=== PATIENT | female | born 1940 | race Caucasian/White ===

== ENCOUNTER 2017-11-07 12:41 | Emergency (ER) | payer MEDICARE, BC ==
[~2017-11-07] VITALS: Ht 154.9 cm; Wt 50.0 kg
[~2017-11-07 12:41] MED LIST: GUAI120015 PO
[2017-11-07] MEDS ORDERED: normal saline 1000ML IV soln IVB ONE (13:15)
[2017-11-07 13:35] LABS: BASOPHILS # (AUTO) 0.2 X10'3 (0-0.2); BASOPHILS % (AUTO) 1.3 % (0-1); EOSINOPHILS # (AUTO) 0.4 X10'3 (0-0.9); EOSINOPHILS % (AUTO) 2.7 % (0-6); HEMATOCRIT 34.9 % (35.0-45.0); HEMOGLOBIN 11.8 g/dl (12.0-16.0); LYMPHOCYTES # (AUTO) 1.2 X10'3 (1.1-4.8); LYMPHOCYTES % (AUTO) 9.4 % (21-51); MEAN CORPUSCULAR HEMOGLOBIN 35.9 PG (27.0-31.0); MEAN CORPUSCULAR HGB CONC 33.9 % (33.0-36.5); MEAN CORPUSCULAR VOLUME 105.8 FL (78-98); MEAN PLATELET VOLUME 7.7 FL (7.4-10.4); MONOCYTES # (AUTO) 0.8 X10'3 (0-0.9); MONOCYTES % (AUTO) 6.3 % (2-12); NEUTROPHILS # (AUTO) 10.3 X10'3 (1.8-7.7); NEUTROPHILS % (AUTO) 80.3 % (42-75); PLATELET COUNT 311 X10'3 (140-440); RED CELL DISTRIBUTION WIDTH 12.7 % (11.5-14.5); WHITE BLOOD COUNT 12.8 X10'3 (4.5-11.0)
[2017-11-07 13:45] LABS: INR 0.9 INR; PARTIAL THROMBOPLASTIN TIME 23 SECONDS (22-32); PROTHROMBIN TIME 9.8 SECONDS (9.0-12.0)
[2017-11-07 13:49] LABS: ALANINE AMINOTRANSFERASE 23 U/L (12-78); ALBUMIN 3.7 G/DL (3.4-5.0); ALKALINE PHOSPHATASE 61 IU/L (46-116); ANION GAP 11 (8-16); ASPARTATE AMINO TRANSFERASE 26 U/L (10-37); BILIRUBIN,TOTAL 0.3 MG/DL (0.1-1.0); BLOOD UREA NITROGEN 21 MG/DL (7-18); BUN/CREATININE RATIO 13.5 (6.6-38.0); CALCIUM 9.9 MG/DL (8.5-10.1); CHLORIDE 95 MMOL/L (99-107); CREATININE 1.56 MG/DL (0.40-0.90); GLUCOSE 82 MG/DL (70-104); POTASSIUM 3.8 MMOL/L (3.5-5.1); SODIUM 130 MMOL/L (135-145); TOTAL CARBON DIOXIDE 23.7 MMOL/L (24-32); TOTAL PROTEIN 7.4 G/DL (6.4-8.2); eGFR 32 ML/MIN
[2017-11-07 13:58] LABS: ETHANOL 0.038 GM/DL (0.0-0.010)
[2017-11-07 14:59] LABS: CLARITY,URINE SLIGHTLY CLOUDY (Clear); COLOR,URINE STRAW (Yellow); GLUCOSE, URINE NEGATIVE (Neg); KETONES,URINE TRACE mg/dl (Neg); LEUKOCYTE ESTERASE ,URINE TRACE (Neg); NITRITES, URINE POSITIVE (Neg); OCCULT BLOOD,URINE TRACE-INTACT (Neg); PROTEIN,URINE NEGATIVE (Neg); UROBILINOGEN,URINE 0.2 E.U/dL (0.2-1.0)
[2017-11-07 15:06] LABS: UA COLLECTION TYPE STRAIGHT CATH
[2017-11-07 15:11] LABS: HYALINE CASTS 0-3 /LPF (NEGATIVE); MUCUS STRANDS FEW /LPF (Neg); SQUAMOUS EPITHELIAL CELL,UR FEW /LPF (FEW)
[2017-11-07 15:13] LABS: BACTERIA,URINE 3+ /HPF (Neg); RBC,URINE 0-2 /HPF (0-2); WBC CLUMPS,URINE MODERATE /HPF (NEGATIVE)
[2017-11-07] MEDS ORDERED: CefTRIAXone/D5W-Rocephin 1gm 50 ML IV ONE (15:20)
[2017-11-07] MEDS ORDERED: SULF1TAB49 PO (15:34)
[2017-11-07 16:21] VITALS: BP 148/76
== END 2017-11-07 16:23 | disposition home or self-care (01) ==
LOC: ER 12:42
DX: S02.2XXA Fracture of nasal bones, initial encounter for closed fracture (principal); R55 Syncope and collapse; N39.0 Urinary tract infection, site not specified; I10 Essential (primary) hypertension; I48.91 Unspecified atrial fibrillation; E78.00 Pure hypercholesterolemia, unspecified; Z90.49 Acquired absence of other specified parts of digestive tract; Z90.710 Acquired absence of both cervix and uterus; Z88.5 Allergy status to narcotic agent; Z79.899 Other long term (current) drug therapy; W18.39XA Other fall on same level, initial encounter; Y93.89 Activity, other specified; Y92.89 Other specified places as the place of occurrence of the external cause; Y99.8 Other external cause status
CPT/HCPCS: 36415; 70160; 70450; 71045; 80053; 80320; 81001; 84443; 84484; 85025; 85610; 85730; 87077; 87088; 87186; 93005; 96361; 96365; 99285; A4353; J0696

== ENCOUNTER 2017-12-16 14:24 | Inpatient (IN) | payer MEDICARE, BC ==
[~2017-12-16] VITALS: Ht 154.9 cm; Wt 52.7 kg
[2017-12-16] MEDS ORDERED: normal saline 1000ML IV soln IVB ONE (14:30)
[2017-12-16] MEDS ORDERED: morphine 4 MG/ML inj SYRINge IV ONE ×2 (14:30→17:55)
[2017-12-16] MEDS ORDERED: morphine 4 MG/ML inj SYRINge IV PRN ×3 (14:30→19:00)
[2017-12-16 15:00] LABS: BASOPHILS % (AUTO) 0.2 % (0-1); EOSINOPHILS # (AUTO) 0.2 X10'3 (0-0.9); EOSINOPHILS % (AUTO) 1.9 % (0-6); HEMATOCRIT 32.1 % (35.0-45.0); HEMOGLOBIN 10.8 g/dl (12.0-16.0); LYMPHOCYTES # (AUTO) 0.6 X10'3 (1.1-4.8); LYMPHOCYTES % (AUTO) 5.7 % (21-51); MEAN CORPUSCULAR HEMOGLOBIN 35.5 PG (27.0-31.0); MEAN CORPUSCULAR HGB CONC 33.8 % (33.0-36.5); MEAN CORPUSCULAR VOLUME 105.3 FL (78-98); MEAN PLATELET VOLUME 7.5 FL (7.4-10.4); MONOCYTES # (AUTO) 0.6 X10'3 (0-0.9); MONOCYTES % (AUTO) 5.9 % (2-12); NEUTROPHILS # (AUTO) 8.8 X10'3 (1.8-7.7); NEUTROPHILS % (AUTO) 86.3 % (42-75); PLATELET COUNT 238 X10'3 (140-440); RED BLOOD COUNT 3.05 X10'6 (4.20-5.60); RED CELL DISTRIBUTION WIDTH 14.2 % (11.5-14.5); WHITE BLOOD COUNT 10.1 X10'3 (4.5-11.0)
[2017-12-16] MEDS ORDERED: OMEP40CA37 PO (15:09)
[2017-12-16] MEDS ORDERED: DIAZ5TAB4 (15:09)
[2017-12-16] MEDS ORDERED: VENL-190 PO (15:09)
[2017-12-16] MEDS ORDERED: LISI-600 PO (15:09)
[2017-12-16] MEDS ORDERED: ATOR20TA PO (15:09)
[2017-12-16] MEDS ORDERED: GABA-530 PO (15:09)
[2017-12-16 15:11] LABS: INR 0.9 INR; PARTIAL THROMBOPLASTIN TIME 23 SECONDS (22-32); PROTHROMBIN TIME 9.6 SECONDS (9.0-12.0)
[2017-12-16 15:12] LABS: CLARITY,URINE CLEAR (Clear); COLOR,URINE YELLOW (Yellow); GLUCOSE, URINE NEGATIVE (Neg); KETONES,URINE 15 mg/dl (Neg); LEUKOCYTE ESTERASE ,URINE NEGATIVE (Neg); NITRITES, URINE NEGATIVE (Neg); OCCULT BLOOD,URINE NEGATIVE (Neg); PH,URINE 6.5 (4.8-8.0); PROTEIN,URINE NEGATIVE (Neg); UA COLLECTION TYPE FOLEY CATH
[2017-12-16 15:17] LABS: ALANINE AMINOTRANSFERASE 29 U/L (12-78); ALBUMIN 3.9 G/DL (3.4-5.0); ALBUMIN/GLOBULIN RATIO 1.2 (1.1-1.5); ALKALINE PHOSPHATASE 55 IU/L (46-116); ANION GAP 12 (8-16); ASPARTATE AMINO TRANSFERASE 23 U/L (10-37); BILIRUBIN,TOTAL 0.7 MG/DL (0.1-1.0); BLOOD UREA NITROGEN 11 MG/DL (7-18); BUN/CREATININE RATIO 11.2 (6.6-38.0); CALCIUM 9.4 MG/DL (8.5-10.1); CHLORIDE 94 MMOL/L (99-107); CREATININE 0.98 MG/DL (0.40-0.90); GLUCOSE 99 MG/DL (70-104); MAGNESIUM 1.2 MG/DL (1.5-2.4); POTASSIUM 4.5 MMOL/L (3.5-5.1); SODIUM 129 MMOL/L (135-145); TOTAL CARBON DIOXIDE 23.3 MMOL/L (24-32); TOTAL PROTEIN 7.1 G/DL (6.4-8.2); eGFR 55 ML/MIN
[2017-12-16 15:37] LABS: PLATELET ESTIMATE NORMAL; TOTAL CELLS COUNTED 100
[2017-12-16] MEDS ORDERED: LIDOcaine 1% 30ml preserv. free vial IJ ONE (15:50)
[2017-12-16] MEDS ORDERED: BUPIVAcaine/PF 2.5 mg/ml (0.25%) 30ml vial IJ ONE (15:50)
[2017-12-16 16:01] LABS: ETHANOL < 0.010 GM/DL (0.0-0.010)
[2017-12-16] MEDS ORDERED: BUPIVAcaine 2.5mg/ml inj 50ml vial (contains preservative) IJ ONE (16:10)
[2017-12-16] MEDS ORDERED: magnesium hydroxide 30ml (MOM) UD suspension PO PRN (19:00)
[2017-12-16] MEDS ORDERED: haloperidol lactate 5mg/ml inj IM PRN (19:00)
[2017-12-16] MEDS ORDERED: magnesium 1gm/100ml D5W IVPB 100 ML IV PRN (19:00)
[2017-12-16] MEDS ORDERED: LORazepam 2 mg/ml vial IV PRN (19:00)
[2017-12-16] MEDS ORDERED: ondansetron/PF 4mg/2ml inj IV PRN (19:00)
[2017-12-16] MEDS ORDERED: potassium Cl 40MEQ/NS 500ml 500 ML IV PRN ×2 (19:00)
[2017-12-16] MEDS ORDERED: LORazepam 1 MG tablet PO PRN (19:00)
[2017-12-16] MEDS ORDERED: potassium Cl 20 mEq SR tablet PO PRN ×2 (19:00)
[2017-12-16] MEDS ORDERED: mag hydrox/Alum hydrox/simeth 30ml oral suspension PO PRN (19:00)
[2017-12-16] MEDS ORDERED: acetaminophen 325mg tablet PO PRN ×2 (19:00)
[2017-12-16] MEDS ORDERED: haloperidol 5mg tablet PO PRN (19:00)
[2017-12-16] MEDS ORDERED: magnesium 4gm in 100ml NS 100 ML IV PRN (19:00)
[2017-12-16] MEDS ORDERED: dextrose 50%-water 50ml dispensing syringe IV PRN (19:00)
[2017-12-16] MEDS: normal saline 1000ml 1,000 ML IV SCH (19:21)
[2017-12-16] MEDS: folic acid 1mg tablet PO SCH (19:21)
[2017-12-16] MEDS: thiamine 100mg tablet PO SCH (19:21)
[2017-12-16] MEDS: gabapentin 100mg capsule PO SCH (19:22)
[2017-12-16] MEDS: lisinopril 20mg tablet PO SCH (19:22)
[2017-12-16 19:32] LABS: % IRON SATURATION 41 % (11-46); IRON 97 UG/DL (49-151); TOTAL IRON BINDING CAPACITY 239 UG/DL (259-388)
[2017-12-16] MEDS: atorvastatin 20mg tablet PO SCH (20:58)
[2017-12-16] MEDS ORDERED: temazepam 15mg capsule PO PRN (21:00)
[2017-12-16 21:59] VITALS: BP 137/79
[2017-12-16] MEDS: HYDROcodone/acetaminophen 10/325mg tab PO PRN (22:39)
[2017-12-17] VITALS (18 sets, daily range): BP systolic 100–140; BP diastolic 48–79
[2017-12-17 06:27] LABS: BASOPHILS % (AUTO) 0.5 % (0-1); EOSINOPHILS # (AUTO) 0.2 X10'3 (0-0.9); EOSINOPHILS % (AUTO) 4.2 % (0-6); HEMATOCRIT 27.3 % (35.0-45.0); HEMOGLOBIN 9.1 g/dl (12.0-16.0); LYMPHOCYTES % (AUTO) 17.2 % (21-51); MEAN CORPUSCULAR HEMOGLOBIN 35.6 PG (27.0-31.0); MEAN CORPUSCULAR HGB CONC 33.5 % (33.0-36.5); MEAN CORPUSCULAR VOLUME 106.4 FL (78-98); MEAN PLATELET VOLUME 7.7 FL (7.4-10.4); MONOCYTES # (AUTO) 0.5 X10'3 (0-0.9); MONOCYTES % (AUTO) 8.9 % (2-12); NEUTROPHILS # (AUTO) 3.9 X10'3 (1.8-7.7); NEUTROPHILS % (AUTO) 69.2 % (42-75); PLATELET COUNT 203 X10'3 (140-440); RED BLOOD COUNT 2.57 X10'6 (4.20-5.60); RED CELL DISTRIBUTION WIDTH 14.2 % (11.5-14.5); WHITE BLOOD COUNT 5.6 X10'3 (4.5-11.0)
[2017-12-17 06:33] LABS: ALBUMIN 3.3 G/DL (3.4-5.0); ANION GAP 9 (8-16); BLOOD UREA NITROGEN 9 MG/DL (7-18); CALCIUM 8.8 MG/DL (8.5-10.1); CHLORIDE 100 MMOL/L (99-107); CREATININE 0.82 MG/DL (0.40-0.90); GLUCOSE 85 MG/DL (70-104); MAGNESIUM 1.4 MG/DL (1.5-2.4); POTASSIUM 4.2 MMOL/L (3.5-5.1); SODIUM 134 MMOL/L (135-145); TOTAL CARBON DIOXIDE 24.9 MMOL/L (24-32); eGFR 67 ML/MIN
[2017-12-17] MEDS: K and/or MAG REPLACEMENT MC SCH (08:00)
[2017-12-17] MEDS ORDERED: non-formulary drug (Omeprazole (Prilosec) 1 CAP) PO SCH (08:00)
[2017-12-17] MEDS: normal saline 1000ml 1,000 ML IV SCH (08:18)
[2017-12-17] MEDS ORDERED: sevoflurane 250ml liquid IH ONE (09:17)
[2017-12-17] MEDS ORDERED: ePHEDrine 50MG/ML INJ. ONE (09:17)
[2017-12-17] MEDS ORDERED: ROPIVAcaine 0.5% (5mg/ml) 30ml vial ONE (09:24)
[2017-12-17] MEDS ORDERED: cloNIDine hcl/PF 100mcg/ml inj ONE (09:24)
[2017-12-17] MEDS ORDERED: midazolam 2 mg/2 ml injection ONE (09:26)
[2017-12-17] MEDS ORDERED: fentaNYL/PF 50MCG/1 ML 2ML syringe ONE (09:26)
[2017-12-17] MEDS ORDERED: propofol inj 20 ML IV ONE (09:30)
[2017-12-17] MEDS ORDERED: ringers solution, lacted 1,000 ML IV SCH (10:14)
[2017-12-17] MEDS ORDERED: morphine 4 MG/ML inj SYRINge IV PRN ×2 (10:15)
[2017-12-17] MEDS ORDERED: ondansetron/PF 4mg/2ml inj IV PRN (10:15)
[2017-12-17] MEDS ORDERED: proCHLORperazine 10 MG/2 ml inj IV PRN (10:15)
[2017-12-17] MEDS ORDERED: meperidine/PF 25mg/ml syringe IV PRN ×3 (10:15)
[2017-12-17] MEDS: thiamine 100mg tablet PO SCH (12:03)
[2017-12-17] MEDS: gabapentin 100mg capsule PO SCH ×2 (12:03→20:07)
[2017-12-17] MEDS: lisinopril 20mg tablet PO SCH ×2 (12:03→20:07)
[2017-12-17] MEDS: pantoprazole 40mg Tablet.DR PO SCH (12:03)
[2017-12-17] MEDS: venlafaxine XR 75mg capsule (Q24H) PO SCH (12:04)
[2017-12-17] MEDS: HYDROcodone/acetaminophen 10/325mg tab PO PRN ×3 (12:04→18:17)
[2017-12-17] MEDS: folic acid 1mg tablet PO SCH (12:04)
[2017-12-17] MEDS: ceFAZolin 1GM/D5W- ADD-VANTAGE 50 ML IV SCH (15:59)
[2017-12-17] MEDS: atorvastatin 20mg tablet PO SCH (20:07)
[2017-12-17] MEDS: magnesium Cl slow-release 64mg tablet PO PRN (20:08)
[2017-12-17] MEDS: HYDROcodone/acetaminophen 5mg/325mg tablet PO PRN (21:29)
[2017-12-18] MEDS: ceFAZolin 1GM/D5W- ADD-VANTAGE 50 ML IV SCH (00:25)
[2017-12-18 02:00] VITALS: BP 114/52
[2017-12-18] MEDS: HYDROcodone/acetaminophen 5mg/325mg tablet PO PRN (05:28)
[2017-12-18] MEDS: normal saline 1000ml 1,000 ML IV SCH (05:29)
[2017-12-18 06:38] LABS: BASOPHILS % (AUTO) 0 % (0-1); EOSINOPHILS # (AUTO) 0.1 X10'3 (0-0.9); HEMATOCRIT 23.7 % (35.0-45.0); HEMOGLOBIN 7.9 g/dl (12.0-16.0); LYMPHOCYTES # (AUTO) 0.5 X10'3 (1.1-4.8); LYMPHOCYTES % (AUTO) 7.5 % (21-51); MEAN CORPUSCULAR HEMOGLOBIN 35.5 PG (27.0-31.0); MEAN CORPUSCULAR HGB CONC 33.2 % (33.0-36.5); MEAN PLATELET VOLUME 7.6 FL (7.4-10.4); MONOCYTES # (AUTO) 0.5 X10'3 (0-0.9); MONOCYTES % (AUTO) 7.4 % (2-12); NEUTROPHILS # (AUTO) 5.8 X10'3 (1.8-7.7); NEUTROPHILS % (AUTO) 84.1 % (42-75); PLATELET COUNT 180 X10'3 (140-440); RED BLOOD COUNT 2.21 X10'6 (4.20-5.60); RED CELL DISTRIBUTION WIDTH 14.5 % (11.5-14.5); WHITE BLOOD COUNT 6.9 X10'3 (4.5-11.0)
[2017-12-18 06:51] LABS: ALBUMIN 2.9 G/DL (3.4-5.0); ANION GAP 8 (8-16); BLOOD UREA NITROGEN 9 MG/DL (7-18); BUN/CREATININE RATIO 9.9 (6.6-38.0); CALCIUM 8.5 MG/DL (8.5-10.1); CHLORIDE 101 MMOL/L (99-107); CREATININE 0.91 MG/DL (0.40-0.90); GLUCOSE 123 MG/DL (70-104); MAGNESIUM 1.1 MG/DL (1.5-2.4); SODIUM 132 MMOL/L (135-145); TOTAL CARBON DIOXIDE 23.1 MMOL/L (24-32); eGFR 60 ML/MIN
[2017-12-18 07:02] VITALS: BP 133/76
[2017-12-18] MEDS: K and/or MAG REPLACEMENT MC SCH (07:17)
[2017-12-18 07:58] LABS: HYPOCHROMASIA 1+; PLATELET ESTIMATE NORMAL; POLYCHROMASIA FEW
[2017-12-18] MEDS: pantoprazole 40mg Tablet.DR PO SCH (08:02)
[2017-12-18] MEDS: gabapentin 100mg capsule PO SCH ×2 (08:02→20:14)
[2017-12-18] MEDS: lisinopril 20mg tablet PO SCH ×2 (08:02→20:14)
[2017-12-18] MEDS: venlafaxine XR 75mg capsule (Q24H) PO SCH (08:02)
[2017-12-18] MEDS: thiamine 100mg tablet PO SCH (08:02)
[2017-12-18] MEDS: folic acid 1mg tablet PO SCH (08:02)
[2017-12-18] MEDS: enoxaparin 40mg/0.4ml syringe SUBCUT SCH (08:03)
[2017-12-18 11:33] VITALS: BP 108/46
[2017-12-18 16:12] VITALS: BP 125/67
[2017-12-18] MEDS: HYDROcodone/acetaminophen 10/325mg tab PO PRN (17:22)
[2017-12-18] MEDS: magnesium Cl slow-release 64mg tablet PO PRN (17:22)
[2017-12-18 18:00] VITALS: BP 117/53
[2017-12-18] MEDS: atorvastatin 20mg tablet PO SCH (20:14)
[2017-12-18 22:00] VITALS: BP 161/74
[2017-12-19] MEDS: HYDROcodone/acetaminophen 10/325mg tab PO PRN ×2 (03:30→14:04)
[2017-12-19 06:15] LABS: BASOPHILS % (AUTO) 0.4 % (0-1); EOSINOPHILS # (AUTO) 0.2 X10'3 (0-0.9); EOSINOPHILS % (AUTO) 3.2 % (0-6); HEMOGLOBIN 8.1 g/dl (12.0-16.0); LYMPHOCYTES # (AUTO) 1.8 X10'3 (1.1-4.8); LYMPHOCYTES % (AUTO) 26.8 % (21-51); MEAN CORPUSCULAR HGB CONC 33.6 % (33.0-36.5); MEAN PLATELET VOLUME 7.7 FL (7.4-10.4); MONOCYTES # (AUTO) 0.6 X10'3 (0-0.9); MONOCYTES % (AUTO) 8.6 % (2-12); NEUTROPHILS # (AUTO) 4.2 X10'3 (1.8-7.7); PLATELET COUNT 186 X10'3 (140-440); RED BLOOD COUNT 2.24 X10'6 (4.20-5.60); RED CELL DISTRIBUTION WIDTH 14.8 % (11.5-14.5); WHITE BLOOD COUNT 6.9 X10'3 (4.5-11.0)
[2017-12-19 06:31] LABS: ALBUMIN 2.8 G/DL (3.4-5.0); ANION GAP 8 (8-16); BLOOD UREA NITROGEN 6 MG/DL (7-18); CALCIUM 8.8 MG/DL (8.5-10.1); CHLORIDE 103 MMOL/L (99-107); CREATININE 0.86 MG/DL (0.40-0.90); GLUCOSE 93 MG/DL (70-104); MAGNESIUM 1.2 MG/DL (1.5-2.4); POTASSIUM 3.8 MMOL/L (3.5-5.1); SODIUM 137 MMOL/L (135-145); TOTAL CARBON DIOXIDE 26.1 MMOL/L (24-32); eGFR 64 ML/MIN
[2017-12-19 07:21] VITALS: BP 149/76
[2017-12-19] MEDS: K and/or MAG REPLACEMENT MC SCH (08:00)
[2017-12-19] MEDS: thiamine 100mg tablet PO SCH (08:01)
[2017-12-19] MEDS: magnesium Cl slow-release 64mg tablet PO PRN (08:01)
[2017-12-19] MEDS: lisinopril 20mg tablet PO SCH (08:01)
[2017-12-19] MEDS: venlafaxine XR 75mg capsule (Q24H) PO SCH (08:01)
[2017-12-19] MEDS: folic acid 1mg tablet PO SCH (08:01)
[2017-12-19] MEDS: pantoprazole 40mg Tablet.DR PO SCH (08:01)
[2017-12-19] MEDS: enoxaparin 40mg/0.4ml syringe SUBCUT SCH (08:02)
[2017-12-19] MEDS: gabapentin 100mg capsule PO SCH (08:02)
[2017-12-19 10:44] VITALS: BP 122/58
== END 2017-12-19 14:10 | DRG 516 ==
LOC: ER 14:24 → ED HOLD 18:58 → ORTHO 4S 21:34
PROVIDERS: ADMIT Hospitalist; ATTEND Internal Medicine
PROC: 3E0T3BZ Introduction of Anesthetic Agent into Peripheral Nerves and Plexi, Percutaneous Approach (ICD-10-PCS; 2017-12-17)
PROC: 0QSF04Z Reposition Left Patella with Internal Fixation Device, Open Approach (ICD-10-PCS; principal; 2017-12-17 09:17)
DX: S82.032A Displaced transverse fracture of left patella, initial encounter for closed fracture (principal); E87.1 Hypo-osmolality and hyponatremia; D53.9 Nutritional anemia, unspecified; E78.00 Pure hypercholesterolemia, unspecified; E83.42 Hypomagnesemia; F10.20 Alcohol dependence, uncomplicated; I10 Essential (primary) hypertension; I48.91 Unspecified atrial fibrillation; G62.9 Polyneuropathy, unspecified; M48.00 Spinal stenosis, site unspecified; S50.02XA Contusion of left elbow, initial encounter; G47.00 Insomnia, unspecified; S00.33XA Contusion of nose, initial encounter; Y90.0 Blood alcohol level of less than 20 mg/100 ml; M25.511 Pain in right shoulder; R29.6 Repeated falls; W01.198A Fall on same level from slipping, tripping and stumbling with subsequent striking against other object, initial encounter; Z60.2 Problems related to living alone; Z90.49 Acquired absence of other specified parts of digestive tract; Z90.710 Acquired absence of both cervix and uterus; Z88.5 Allergy status to narcotic agent; Z79.899 Other long term (current) drug therapy; Z87.11 Personal history of peptic ulcer disease; Z87.440 Personal history of urinary (tract) infections; Y93.01 Activity, walking, marching and hiking; Y92.098 Other place in other non-institutional residence as the place of occurrence of the external cause; Y99.8 Other external cause status; Z71.41 Alcohol abuse counseling and surveillance of alcoholic
CPT/HCPCS: 36415; 70450; 71045; 73030; 73080; 73560; 73564; 76000; 80048; 80053; 80320; 81003; 82607; 82746; 83540; 83550; 83605; 83735; 84484; 85025; 85610; 85730; 86885; 86900; 86901; 87040; 87070; 93005; 93306; 96361; 96374; 96376; 97116; 97162; 97530; 99285; A4315; A6449; A7000; C1713; C1750; J0690; J0735; J1650; J2250; J2270; J2704; J2795; J3010; J3490; J7030; J7120

== ENCOUNTER 2018-04-16 16:20 | Emergency (ER) | payer MEDICARE, BC ==
[~2018-04-16] VITALS: Ht 157.5 cm; Wt 52.3 kg
[~2018-04-16 16:20] MED LIST changes: +ATOR20TA PO; +DIAZ5TAB4; +GABA-530 PO; +LISI-600 PO; +OMEP40CA37 PO; +VENL-190 PO
[2018-04-16] MEDS ORDERED: LIDOcaine 1.5% w/epinephrine 1:200,000 5ml ampul IJ ONE (16:55)
[2018-04-16] MEDS ORDERED: LIDOcaine 1% w/EPI 1:100,000 30ml vial (MDV) IJ ONE (17:00)
[2018-04-16] MEDS ORDERED: normal saline 1000ML IV soln IVB ONE ×2 (17:05→18:35)
--- NOTE | 2018-04-16 18:00 | NUR ---
PT DID NOT USE CALL LIGHT, SAT UP IN BED. DID NOT GET PATIENTS PANTS OFF IN TIME, PT PEED. PT DAUGHTER MERYL ON PHONE. GOT PT PERMISSION TO TALK TO HER. PT WAS AT THE [facility] IN [place] THIS AM AT [place], DRANK ALL DAY. [employer] CALLED. FRIENDS HELPED HER. SOFI SPARROW (GRANDSON) LIVES IN [place] #[phone] TO BRING SWEAT PAINTS. MERYL HAS NEW ADDRESS TO ADMITTING FOR UPDATE.
--- NOTE | 2018-04-16 19:18 | NUR ---
Spoke with daughter "Billy". General questions answered, as well as provided general information for community resourcesb that may be needed for her mother/patient.
[2018-04-16] MEDS ORDERED: normal saline 1000ml 1,000 ML IV ONE (19:45)
[2018-04-16 20:54] VITALS: BP 162/90
--- NOTE | 2018-04-16 21:00 | NUR ---
Call placed to patient's grandson "Christopher" and informed patient is ready for discharge.
== END 2018-04-16 21:15 | disposition home or self-care (01) ==
LOC: ER 16:20
DX: S02.40EA Zygomatic fracture, right side, initial encounter for closed fracture (principal); S02.2XXA Fracture of nasal bones, initial encounter for closed fracture; S01.21XA Laceration without foreign body of nose, initial encounter; F10.129 Alcohol abuse with intoxication, unspecified; I10 Essential (primary) hypertension; E78.00 Pure hypercholesterolemia, unspecified; G62.9 Polyneuropathy, unspecified; I48.91 Unspecified atrial fibrillation; Z90.710 Acquired absence of both cervix and uterus; Z88.6 Allergy status to analgesic agent; W18.30XA Fall on same level, unspecified, initial encounter; Y93.89 Activity, other specified; Y92.89 Other specified places as the place of occurrence of the external cause; Y99.8 Other external cause status
CPT/HCPCS: 12011; 36415; 70450; 70486; 72125; 80320; 99284; J3490; J7030

== ENCOUNTER 2018-10-18 14:51 | Emergency (ER) | payer MEDICARE, BC ==
[~2018-10-18] VITALS: Ht 157.5 cm; Wt 60.0 kg
[2018-10-18 14:58] VITALS: BP 109/38
[2018-10-18] MEDS ORDERED: HYDROcodone/acetaminophen 5mg/325mg tablet PO ONE (16:50)
[2018-10-18] MEDS ORDERED: HYDR-3965 PO (18:08)
== END 2018-10-18 18:51 | disposition home or self-care (01) ==
LOC: ER 14:51
DX: S72.112A Displaced fracture of greater trochanter of left femur, initial encounter for closed fracture (principal); I48.91 Unspecified atrial fibrillation; G62.9 Polyneuropathy, unspecified; E78.00 Pure hypercholesterolemia, unspecified; I10 Essential (primary) hypertension; Z90.49 Acquired absence of other specified parts of digestive tract; Z90.710 Acquired absence of both cervix and uterus; Z79.899 Other long term (current) drug therapy; Z88.5 Allergy status to narcotic agent; W18.49XA Other slipping, tripping and stumbling without falling, initial encounter; Y93.89 Activity, other specified; Y92.89 Other specified places as the place of occurrence of the external cause; Y99.9 Unspecified external cause status
CPT/HCPCS: 73502; 73700; 99284

== ENCOUNTER 2019-08-26 19:21 | Inpatient (IN) | payer MEDICARE, BC ==
[~2019-08-26] VITALS: Ht 157.5 cm; Wt 53.6 kg
[~2019-08-26 19:21] MED LIST changes: +ACET-2319 PO; -DIAZ5TAB4; -GUAI120015 PO; +OMEP40CA13 PO; -OMEP40CA37 PO; +SOLI5TAB2 PO
[2019-08-26] MEDS ORDERED: ondansetron/PF 4mg/2ml inj IV ONE (19:45)
[2019-08-26] MEDS ORDERED: morphine 4 MG/ML inj SYRINge IV ONE (19:45)
--- NOTE | 2019-08-26 19:47 | NUR ---
pt to x ray
--- NOTE | 2019-08-26 20:03 | NUR ---
pt back from [facility] via [facility] , discused iv placement for medication. pt accepted.
--- NOTE | 2019-08-26 20:17 | NUR ---
pt to ct via [facility]
--- NOTE | 2019-08-26 20:29 | NUR ---
Pt returned from CT scan via [facility].
--- NOTE | 2019-08-26 20:52 | NUR ---
Attempted to Gait test the patient. As she was attempting to stand up, she stated "I can't, it's too painful!" Dr. José and JULIÁN Boyd notified of the unsuccessful attempt for gait test.
[2019-08-26] MEDS ORDERED: AMLO5TAB16 PO (21:21)
[2019-08-26] MEDS ORDERED: SOLI10TA7 PO (21:21)
[2019-08-26] MEDS ORDERED: CHOL200012 PO (21:21)
[2019-08-26] MEDS ORDERED: CYAN250010 PO (21:21)
[2019-08-26] MEDS ORDERED: VENL75CA61 PO (21:21)
[2019-08-26 22:36] LABS: BASOPHILS % (AUTO) 0.3 % (0-1); EOSINOPHILS # (AUTO) 0.1 X10'3 (0-0.9); HEMATOCRIT 31.4 % (35.0-45.0); HEMOGLOBIN 10.5 g/dl (12.0-16.0); LYMPHOCYTES % (AUTO) 6.8 % (21-51); MEAN CORPUSCULAR HEMOGLOBIN 35.3 PG (27.0-31.0); MEAN CORPUSCULAR HGB CONC 33.4 g/dL (33.0-36.5); MEAN CORPUSCULAR VOLUME 105.6 FL (78-98); MEAN PLATELET VOLUME 7.5 FL (7.4-10.4); MONOCYTES # (AUTO) 0.9 X10'3 (0-0.9); MONOCYTES % (AUTO) 5.9 % (2-12); PARTIAL THROMBOPLASTIN TIME 25 SECONDS (22-32); PLATELET COUNT 251 X10'3 (140-440); RED BLOOD COUNT 2.97 X10'6 (4.20-5.60); RED CELL DISTRIBUTION WIDTH 12.2 % (11.5-14.5); WHITE BLOOD COUNT 15.1 X10'3 (4.5-11.0)
[2019-08-26 22:44] LABS: ALANINE AMINOTRANSFERASE 21 U/L (12-78); ALBUMIN 3.7 G/DL (3.4-5.0); ALBUMIN/GLOBULIN RATIO 1.2 (1.1-1.5); ALKALINE PHOSPHATASE 50 IU/L (46-116); ANION GAP 4 (8-16); ASPARTATE AMINO TRANSFERASE 21 U/L (10-37); BILIRUBIN,TOTAL 0.5 MG/DL (0.1-1.0); BLOOD UREA NITROGEN 22 MG/DL (7-18); BUN/CREATININE RATIO 20.4 (6.6-38.0); CALCIUM 9.3 MG/DL (8.5-10.1); CHLORIDE 99 MMOL/L (99-107); CREATININE 1.08 MG/DL (0.40-0.90); GLUCOSE 110 MG/DL (70-104); MAGNESIUM 1.3 MG/DL (1.5-2.4); POTASSIUM 4.4 MMOL/L (3.5-5.1); SODIUM 131 MMOL/L (135-145); TOTAL CARBON DIOXIDE 27.9 MMOL/L (24-32); TOTAL PROTEIN 6.7 G/DL (6.4-8.2); eGFR 49 ML/MIN
[2019-08-26 22:47] LABS: CLARITY,URINE SLIGHTLY CLOUDY (Clear); COLOR,URINE YELLOW (Yellow); GLUCOSE, URINE NEGATIVE (Neg); KETONES,URINE NEGATIVE (Neg); LEUKOCYTE ESTERASE ,URINE TRACE (Neg); NITRITES, URINE NEGATIVE (Neg); OCCULT BLOOD,URINE NEGATIVE (Neg); PROTEIN,URINE NEGATIVE (Neg); UROBILINOGEN,URINE 0.2 E.U/dL (0.2-1.0)
[2019-08-26 23:08] LABS: UA COLLECTION TYPE STRAIGHT CATH
[2019-08-26 23:10] LABS: BACTERIA,URINE 4+ /HPF (Neg); RBC,URINE 0-2 /HPF (0-2); SQUAMOUS EPITHELIAL CELL,UR FEW /LPF (FEW); TRANSITIONAL EPI CELLS,URINE FEW /HPF; WBC CLUMPS,URINE FEW /HPF (NEGATIVE); WBC,URINE 20-30 /HPF (0-4)
[2019-08-26] MEDS ORDERED: potassium Cl 20 mEq SR tablet PO PRN ×2 (23:40)
[2019-08-26] MEDS ORDERED: magnesium hydroxide 30ml (MOM) UD suspension PO PRN (23:40)
[2019-08-26] MEDS ORDERED: acetaminophen 325mg tablet PO PRN (23:40)
[2019-08-26] MEDS ORDERED: ondansetron/PF 4mg/2ml inj IV PRN (23:40)
[2019-08-26] MEDS ORDERED: HYDROcodone/acetaminophen 5mg/325mg tablet PO PRN (23:40)
[2019-08-26] MEDS ORDERED: magnesium 4gm in 100ml NS 100 ML IV PRN (23:40)
[2019-08-26] MEDS ORDERED: potassium CL 10mEq/100ml bag 100 ML IV PRN ×2 (23:40)
[2019-08-26] MEDS ORDERED: morphine 2 MG/ML inj. syringe IV PRN ×2 (23:40)
[2019-08-26] MEDS ORDERED: magnesium 2GM in 50ml NS 50 ML IV PRN (23:40)
[2019-08-26] MEDS ORDERED: mag hydrox/Alum hydrox/simeth 30ml oral suspension PO PRN (23:40)
[2019-08-27 00:50] VITALS: BP 104/53
[2019-08-27] MEDS: magnesium Cl slow-release 64mg tablet PO PRN (00:56)
[2019-08-27] MEDS: HYDROcodone/acetaminophen 10/325mg tab PO PRN ×3 (01:26→20:07)
[2019-08-27 02:00] VITALS: BP 104/53
--- NOTE | 2019-08-27 03:10 | NUR ---
Patient up to BSC. Work of breathing when returned to bed was significant. RR 30 while patient O2 remained between 90-94 on 4L. Ativan given to ease anxiety. Patient encouraged to purse lip breath. RT came to room to provide treatment. After several minutes, work of breathing had not improved. Given morphine to assist with air hunger. Several minutes passed prior to the RR decreasing back down to 26. Patient remains anxious and work of breathing remains increased; but anxiety eased enough to the point that the patient felt comfortable with me leaving her side. Provided a warm blanket and attached call blue to her gown for easy access. Within 15 minutes, an RN brought to my attention that her work of breathing was still increased and the patient was shaky. The RN checked her blood sugar at 177. Advised the RN that we had just left the room spending about 30 minutes in there with the patient with RT and charge. Aware of situation. Went in to see patient to advise that the shaking she is experiencing is typical of having just received a breathing treatment as it can make one feel jittery. Provided another warm blanket and increased the thermostat in the room. Will continue to monitor patient closely via q15 checks until work of breathing decreased. Addendum: 08/27/19 at 0344 by Valerie Vincent RN Strike from record Incorrect patient
[2019-08-27 06:00] VITALS: BP 96/51
--- NOTE | 2019-08-27 06:32 | NUR ---
Problems reprioritized. Patient report given, questions answered & plan of care reviewed with EMIGDIO Thomas.
[2019-08-27 06:33] LABS: BASOPHILS # (AUTO) 0.1 X10'3 (0-0.2); BASOPHILS % (AUTO) 0.6 % (0-1); EOSINOPHILS # (AUTO) 0.4 X10'3 (0-0.9); EOSINOPHILS % (AUTO) 3.7 % (0-6); HEMATOCRIT 30.1 % (35.0-45.0); HEMOGLOBIN 10.2 g/dl (12.0-16.0); LYMPHOCYTES # (AUTO) 1.4 X10'3 (1.1-4.8); LYMPHOCYTES % (AUTO) 14.2 % (21-51); MEAN CORPUSCULAR HEMOGLOBIN 35.7 PG (27.0-31.0); MEAN CORPUSCULAR HGB CONC 33.8 g/dL (33.0-36.5); MEAN CORPUSCULAR VOLUME 105.7 FL (78-98); MONOCYTES # (AUTO) 0.8 X10'3 (0-0.9); MONOCYTES % (AUTO) 7.6 % (2-12); NEUTROPHILS # (AUTO) 7.4 X10'3 (1.8-7.7); NEUTROPHILS % (AUTO) 73.9 % (42-75); PLATELET COUNT 243 X10'3 (140-440); RED BLOOD COUNT 2.85 X10'6 (4.20-5.60); RED CELL DISTRIBUTION WIDTH 12.5 % (11.5-14.5); WHITE BLOOD COUNT 10.1 X10'3 (4.5-11.0)
[2019-08-27 06:35] LABS: ALANINE AMINOTRANSFERASE 19 U/L (12-78); ALBUMIN 3.4 G/DL (3.4-5.0); ALBUMIN/GLOBULIN RATIO 1.1 (1.1-1.5); ALKALINE PHOSPHATASE 49 IU/L (46-116); ANION GAP 4 (8-16); ASPARTATE AMINO TRANSFERASE 19 U/L (10-37); BILIRUBIN,TOTAL 0.6 MG/DL (0.1-1.0); BLOOD UREA NITROGEN 24 MG/DL (7-18); CALCIUM 9.6 MG/DL (8.5-10.1); CHLORIDE 100 MMOL/L (99-107); CREATININE 1.09 MG/DL (0.40-0.90); GLUCOSE 88 MG/DL (70-104); MAGNESIUM 1.5 MG/DL (1.5-2.4); POTASSIUM 4.5 MMOL/L (3.5-5.1); SODIUM 133 MMOL/L (135-145); TOTAL CARBON DIOXIDE 28.8 MMOL/L (24-32); TOTAL PROTEIN 6.5 G/DL (6.4-8.2); eGFR 48 ML/MIN
--- NOTE | 2019-08-27 06:45 | NUR ---
Patient in room PCU 3023. I have received report from EMIGDIO MARTINEZ and had the opportunity to ask questions and assume patient care.
[2019-08-27] MEDS: K and/or MAG REPLACEMENT MC SCH ×2 (07:10→19:26)
[2019-08-27] MEDS: lisinopril 20mg tablet PO SCH ×2 (08:00→20:00)
[2019-08-27] MEDS: amLODIPine 5mg tablet PO SCH (08:00)
[2019-08-27] MEDS: pantoprazole 40mg Tablet.DR PO SCH (08:33)
[2019-08-27] MEDS: venlafaxine XR 75mg capsule (Q24H) PO SCH (08:33)
[2019-08-27] MEDS: gabapentin 100mg capsule PO SCH ×2 (08:33→20:07)
[2019-08-27] MEDS: oxybutynin 5mg tablet PO SCH ×3 (08:33→20:07)
[2019-08-27] MEDS: heparin, porcine 5000 units/ml vial SQ SCH ×2 (08:35→20:06)
--- NOTE | 2019-08-27 09:17 | NUR ---
PAGER ID: [phone] MESSAGE: DR. WELLS, 3023B/CHEPE, BP 96/51. PER PARAMRENA, HELD AM OKSANA AND JANEL. TY, ELIJAH [id number].
--- NOTE | 2019-08-27 09:20 | NUR ---
ATTEMPT TO CALL REPORT TO EMIGDIO DONATO, ORTHO. JIGNESH STATES"SHE IS DOING MED PASS, SHE WILL CALL YOU BACK ELBA".
--- NOTE | 2019-08-27 09:33 | NUR ---
PAGER ID: [phone] MESSAGE: DR. WELLS, 5253B/MO, HAS NOT VOIDED. DENIES DISCOMFORT. BLADDER SCAN SHOWS 187CC. ELIJAH [id number]. TY
--- NOTE | 2019-08-27 09:45 | NUR ---
REPORT CALLED TO EMIGDIO DONATO. FORMER HAND'S TO TRANSPORT VIA BED TO ROOM 4014A. DR. WELLS AWARE OF AM BP. MEDS HELD, NO VOID WITH 187CC VIA BLADDER SCAN.
[2019-08-27 18:00] VITALS: BP 97/50
--- NOTE | 2019-08-27 18:05 | NUR ---
Received patient report from EMIGDIO Zhou. Assumed patient care.
[2019-08-27] MEDS: atorvastatin 20mg tablet PO SCH (20:07)
[2019-08-27 22:00] VITALS: BP 101/54
[2019-08-28] MEDS: HYDROcodone/acetaminophen 10/325mg tab PO PRN ×3 (05:25→21:17)
[2019-08-28 05:57] LABS: BASOPHILS % (AUTO) 0.4 % (0-1); EOSINOPHILS # (AUTO) 0.6 X10'3 (0-0.9); EOSINOPHILS % (AUTO) 5.7 % (0-6); HEMATOCRIT 30.1 % (35.0-45.0); HEMOGLOBIN 10.1 g/dl (12.0-16.0); LYMPHOCYTES # (AUTO) 1.6 X10'3 (1.1-4.8); LYMPHOCYTES % (AUTO) 15.5 % (21-51); MEAN CORPUSCULAR HEMOGLOBIN 35.5 PG (27.0-31.0); MEAN CORPUSCULAR HGB CONC 33.5 g/dL (33.0-36.5); MEAN CORPUSCULAR VOLUME 105.7 FL (78-98); MEAN PLATELET VOLUME 7.8 FL (7.4-10.4); MONOCYTES # (AUTO) 0.7 X10'3 (0-0.9); NEUTROPHILS # (AUTO) 7.3 X10'3 (1.8-7.7); NEUTROPHILS % (AUTO) 71.4 % (42-75); PLATELET COUNT 241 X10'3 (140-440); RED BLOOD COUNT 2.84 X10'6 (4.20-5.60); RED CELL DISTRIBUTION WIDTH 12.4 % (11.5-14.5); WHITE BLOOD COUNT 10.2 X10'3 (4.5-11.0)
[2019-08-28 06:00] VITALS: BP 94/58
--- NOTE | 2019-08-28 06:21 | NUR ---
Patient report given, questions answered and plan of care reviewed with EMIGDIO Dill.
[2019-08-28 06:26] LABS: ALANINE AMINOTRANSFERASE 18 U/L (12-78); ALBUMIN 3.3 G/DL (3.4-5.0); ALKALINE PHOSPHATASE 52 IU/L (46-116); ANION GAP 4 (8-16); ASPARTATE AMINO TRANSFERASE 18 U/L (10-37); BILIRUBIN,TOTAL 0.4 MG/DL (0.1-1.0); BLOOD UREA NITROGEN 35 MG/DL (7-18); BUN/CREATININE RATIO 17.6 (6.6-38.0); CALCIUM 9.4 MG/DL (8.5-10.1); CHLORIDE 97 MMOL/L (99-107); CREATININE 1.99 MG/DL (0.40-0.90); GLUCOSE 98 MG/DL (70-104); MAGNESIUM 1.4 MG/DL (1.5-2.4); POTASSIUM 4.5 MMOL/L (3.5-5.1); SODIUM 131 MMOL/L (135-145); TOTAL PROTEIN 6.6 G/DL (6.4-8.2); eGFR 24 ML/MIN
[2019-08-28] MEDS: K and/or MAG REPLACEMENT MC SCH ×2 (06:58→19:15)
[2019-08-28] MEDS: gabapentin 100mg capsule PO SCH (07:25)
[2019-08-28] MEDS: oxybutynin 5mg tablet PO SCH ×3 (07:25→20:14)
[2019-08-28] MEDS: venlafaxine XR 75mg capsule (Q24H) PO SCH (07:26)
[2019-08-28] MEDS: pantoprazole 40mg Tablet.DR PO SCH (07:26)
[2019-08-28] MEDS: heparin, porcine 5000 units/ml vial SQ SCH ×2 (07:26→20:15)
[2019-08-28 07:32] VITALS: BP 88/52
--- NOTE | 2019-08-28 07:33 | NUR ---
held BP meds until 1000 VS Addendum: 08/28/19 at 0733 by Aniyah Anderson RN Amended: Links added.
[2019-08-28] MEDS: lisinopril 20mg tablet PO SCH ×2 (08:00→19:41)
[2019-08-28] MEDS: amLODIPine 5mg tablet PO SCH (08:00)
[2019-08-28] MEDS: normal saline 1000ml 1,000 ML IV SCH ×2 (08:40→18:34)
[2019-08-28 09:02] LABS: CREATINE KINASE 71 U/L (26-192)
[2019-08-28 10:00] VITALS: BP 99/44
[2019-08-28] MEDS: amox tr/potassium clavulanate 875/125mg TAB PO SCH ×2 (14:52→18:31)
--- NOTE | 2019-08-28 17:04 | NUR ---
Patient to be transferred to [facility]
--- NOTE | 2019-08-28 18:25 | NUR ---
Patient in room [facility]. I have received report from EMIGDIO Dill and had the opportunity to ask questions and assume patient care.
--- NOTE | 2019-08-28 18:29 | NUR ---
Problems reprioritized. Patient report given, questions answered & plan of care reviewed with Nicci BEAL.
[2019-08-28] MEDS: magnesium Cl slow-release 64mg tablet PO PRN (18:32)
[2019-08-28 19:41] VITALS: BP 96/52
[2019-08-28] MEDS: atorvastatin 20mg tablet PO SCH (20:15)
[2019-08-28 23:59] VITALS: BP 110/59
[2019-08-29] MEDS: normal saline 1000ml 1,000 ML IV SCH ×2 (04:22→07:53)
[2019-08-29 06:01] LABS: BASOPHILS % (AUTO) 0.3 % (0-1); EOSINOPHILS # (AUTO) 0.6 X10'3 (0-0.9); EOSINOPHILS % (AUTO) 5.4 % (0-6); HEMATOCRIT 28.1 % (35.0-45.0); HEMOGLOBIN 9.5 g/dl (12.0-16.0); LYMPHOCYTES # (AUTO) 1.2 X10'3 (1.1-4.8); LYMPHOCYTES % (AUTO) 10.9 % (21-51); MEAN CORPUSCULAR HGB CONC 33.8 g/dL (33.0-36.5); MEAN CORPUSCULAR VOLUME 106.5 FL (78-98); MEAN PLATELET VOLUME 8.2 FL (7.4-10.4); MONOCYTES # (AUTO) 0.9 X10'3 (0-0.9); MONOCYTES % (AUTO) 8.2 % (2-12); NEUTROPHILS # (AUTO) 8.2 X10'3 (1.8-7.7); NEUTROPHILS % (AUTO) 75.2 % (42-75); PLATELET COUNT 225 X10'3 (140-440); RED BLOOD COUNT 2.64 X10'6 (4.20-5.60); RED CELL DISTRIBUTION WIDTH 12.4 % (11.5-14.5); WHITE BLOOD COUNT 10.9 X10'3 (4.5-11.0)
[2019-08-29 06:19] LABS: ALANINE AMINOTRANSFERASE 17 U/L (12-78); ALBUMIN 3.3 G/DL (3.4-5.0); ALKALINE PHOSPHATASE 48 IU/L (46-116); ANION GAP 8 (8-16); ASPARTATE AMINO TRANSFERASE 26 U/L (10-37); BILIRUBIN,TOTAL 0.3 MG/DL (0.1-1.0); BLOOD UREA NITROGEN 32 MG/DL (7-18); BUN/CREATININE RATIO 19.6 (6.6-38.0); CALCIUM 9.1 MG/DL (8.5-10.1); CHLORIDE 96 MMOL/L (99-107); CREATININE 1.63 MG/DL (0.40-0.90); GLUCOSE 93 MG/DL (70-104); MAGNESIUM 1.2 MG/DL (1.5-2.4); SODIUM 130 MMOL/L (135-145); TOTAL CARBON DIOXIDE 26.2 MMOL/L (24-32); TOTAL PROTEIN 6.6 G/DL (6.4-8.2); eGFR 30 ML/MIN
[2019-08-29 06:22] LABS: POTASSIUM 4.5 MMOL/L (3.5-5.1)
--- NOTE | 2019-08-29 06:42 | NUR ---
Problems reprioritized. Patient report given, questions answered & plan of care reviewed with EMIGDIO Crump.
[2019-08-29 07:00] VITALS: BP 94/52
--- NOTE | 2019-08-29 07:18 | NUR ---
Patient in room [facility]. I have received report from Shannan Melo RN and had the opportunity to ask questions and assume patient care.
[2019-08-29] MEDS: venlafaxine XR 75mg capsule (Q24H) PO SCH (07:39)
[2019-08-29] MEDS: amox tr/potassium clavulanate 875/125mg TAB PO SCH (07:39)
[2019-08-29] MEDS: magnesium Cl slow-release 64mg tablet PO PRN (07:39)
[2019-08-29] MEDS: oxybutynin 5mg tablet PO SCH ×2 (07:40→12:51)
[2019-08-29] MEDS: pantoprazole 40mg Tablet.DR PO SCH (07:40)
[2019-08-29] MEDS: lisinopril 20mg tablet PO SCH (07:41)
[2019-08-29] MEDS: heparin, porcine 5000 units/ml vial SQ SCH (07:42)
[2019-08-29] MEDS: amLODIPine 5mg tablet PO SCH (07:43)
[2019-08-29] MEDS: HYDROcodone/acetaminophen 10/325mg tab PO PRN (07:52)
[2019-08-29] MEDS ORDERED: gabapentin 100mg capsule PO SCH (08:00)
[2019-08-29 11:00] VITALS: BP 137/66
--- NOTE | 2019-08-29 14:09 | NUR ---
Pt D/C'd to [facility] in stable conditions. Report called and given to nurse Chey. IV removed with intact cannula. Pt was transferred via [facility] with accompanied by [facility].
[2019-08-29] MEDS ORDERED: magnesium oxide 400mg tablet PO SCH (20:00)
== END 2019-08-29 13:49 | DRG 543 ==
LOC: ER 19:21 → ED HOLD 23:49 → PCU 3S 08-27 00:40 → ORTHO 4S 08-27 09:55 → SUR 3N 08-28 17:24
PROVIDERS: ADMIT Internal Medicine; ATTEND Internal Medicine
DX: M80.051A Age-related osteoporosis with current pathological fracture, right femur, initial encounter for fracture (principal); N39.0 Urinary tract infection, site not specified; N17.9 Acute kidney failure, unspecified; I48.91 Unspecified atrial fibrillation; G62.9 Polyneuropathy, unspecified; E83.42 Hypomagnesemia; N18.3 Chronic kidney disease, stage 3 (moderate); S72.111A Displaced fracture of greater trochanter of right femur, initial encounter for closed fracture; B96.89 Other specified bacterial agents as the cause of diseases classified elsewhere; D50.9 Iron deficiency anemia, unspecified; E78.00 Pure hypercholesterolemia, unspecified; E78.5 Hyperlipidemia, unspecified; W01.0XXA Fall on same level from slipping, tripping and stumbling without subsequent striking against object, initial encounter; S49.91XA Unspecified injury of right shoulder and upper arm, initial encounter; Y93.01 Activity, walking, marching and hiking; Z96.652 Presence of left artificial knee joint; I12.9 Hypertensive chronic kidney disease with stage 1 through stage 4 chronic kidney disease, or unspecified chronic kidney disease; Z87.11 Personal history of peptic ulcer disease; Z90.49 Acquired absence of other specified parts of digestive tract; Z90.710 Acquired absence of both cervix and uterus; Z79.899 Other long term (current) drug therapy; Y92.098 Other place in other non-institutional residence as the place of occurrence of the external cause; Y99.8 Other external cause status; Z88.5 Allergy status to narcotic agent
CPT/HCPCS: 36415; 72100; 72131; 73030; 73502; 73700; 80053; 81001; 82550; 83735; 85025; 85610; 85730; 87077; 87081; 87088; 87186; 96374; 96375; 97110; 97116; 97162; 97530; 99285; G0378; J1644; J2270; J2405; J7030

== ENCOUNTER 2020-03-24 11:34 | Emergency (ER) | payer MEDICARE, BC ==
[~2020-03-24] VITALS: Ht 157.5 cm; Wt 52.3 kg
[~2020-03-24 11:34] MED LIST changes: -ACET-2319 PO; +AMLO5TAB PO; -ATOR20TA PO; +ATOR20TA66 PO; +LACT1CAP26 PO; +MAGN400C PO; +POTA10TA36 PO; +SODI1TAB2 PO; +SOLI10TA2 PO; -SOLI5TAB2 PO; -VENL-190 PO; +VENL75TA90 PO
[2020-03-24] MEDS ORDERED: ondansetron 4mg rapidly disintigrating tab PO ONE (12:15)
[2020-03-24 12:55] LABS: BASOPHILS % (AUTO) 0.8 % (0-1); EOSINOPHILS % (AUTO) 0 % (0-6); HEMATOCRIT 42.2 % (35.0-45.0); HEMOGLOBIN 14.4 g/dl (12.0-16.0); LYMPHOCYTES # (AUTO) 0.6 X10'3 (1.1-4.8); LYMPHOCYTES % (AUTO) 8.9 % (21-51); MEAN CORPUSCULAR HEMOGLOBIN 35.4 PG (27.0-31.0); MEAN CORPUSCULAR HGB CONC 34.2 g/dL (33.0-36.5); MEAN CORPUSCULAR VOLUME 103.7 FL (78-98); MEAN PLATELET VOLUME 7.5 FL (7.4-10.4); MONOCYTES # (AUTO) 0.5 X10'3 (0-0.9); MONOCYTES % (AUTO) 7.3 % (2-12); NEUTROPHILS # (AUTO) 5.2 X10'3 (1.8-7.7); PLATELET COUNT 293 X10'3 (140-440); RED BLOOD COUNT 4.07 X10'6 (4.20-5.60); RED CELL DISTRIBUTION WIDTH 13.6 % (11.5-14.5); WHITE BLOOD COUNT 6.2 X10'3 (4.5-11.0)
[2020-03-24 12:58] LABS: CLARITY,URINE SLIGHTLY CLOUDY (Clear); COLOR,URINE YELLOW (Yellow); GLUCOSE, URINE NEGATIVE (Neg); KETONES,URINE 40 mg/dl (Neg); LEUKOCYTE ESTERASE ,URINE NEGATIVE (Neg); NITRITES, URINE NEGATIVE (Neg); OCCULT BLOOD,URINE MODERATE (Neg); PROTEIN,URINE >=300 mg/dl (Neg)
[2020-03-24 13:07] LABS: UA COLLECTION TYPE STRAIGHT CATH
[2020-03-24 13:09] LABS: ALANINE AMINOTRANSFERASE 46 U/L (12-78); ALBUMIN 4.4 G/DL (3.4-5.0); ALBUMIN/GLOBULIN RATIO 1.1 (1.1-1.5); ALKALINE PHOSPHATASE 80 IU/L (46-116); ANION GAP 14 (8-16); ASPARTATE AMINO TRANSFERASE 49 U/L (10-37); BILIRUBIN,TOTAL 0.6 MG/DL (0.1-1.0); BLOOD UREA NITROGEN 18 MG/DL (7-18); BUN/CREATININE RATIO 18.4 (6.6-38.0); CHLORIDE 90 MMOL/L (99-107); CREATININE 0.98 MG/DL (0.40-0.90); GLUCOSE 100 MG/DL (70-104); POTASSIUM 4.3 MMOL/L (3.5-5.1); SODIUM 127 MMOL/L (135-145); TOTAL CARBON DIOXIDE 23.2 MMOL/L (24-32); TOTAL PROTEIN 8.5 G/DL (6.4-8.2); eGFR 55 ML/MIN
[2020-03-24 13:12] LABS: BACTERIA,URINE NONE SEEN /HPF (Neg); MUCUS STRANDS FEW /LPF (Neg); RBC,URINE 0-2 /HPF (0-2); SQUAMOUS EPITHELIAL CELL,UR FEW /LPF (FEW); TRANSITIONAL EPI CELLS,URINE FEW /HPF; WBC,URINE 0-4 /HPF (0-4)
[2020-03-24 13:13] LABS: AMORPHOUS URATES 3+; HYALINE CASTS 0-3 /LPF (NEGATIVE)
[2020-03-24] MEDS ORDERED: ONDA4TAB6 PO (13:34)
[2020-03-24 14:32] VITALS: BP 178/83
--- NOTE | 2020-03-24 14:35 | NUR ---
PT TAKES MEDICATION FOR HTN BUT HAS BEEN UNABLE TO TAKE HER MEDICATION FOR TWO DAYS.
== END 2020-03-24 14:37 | disposition home or self-care (01) ==
LOC: ER 11:35
DX: E86.0 Dehydration (principal); R11.2 Nausea with vomiting, unspecified; E87.1 Hypo-osmolality and hyponatremia; R31.9 Hematuria, unspecified; I48.91 Unspecified atrial fibrillation; E78.00 Pure hypercholesterolemia, unspecified; I10 Essential (primary) hypertension; G62.9 Polyneuropathy, unspecified; Z87.11 Personal history of peptic ulcer disease; Z90.49 Acquired absence of other specified parts of digestive tract; Z90.710 Acquired absence of both cervix and uterus; Z98.890 Other specified postprocedural states; Z79.899 Other long term (current) drug therapy; Z88.5 Allergy status to narcotic agent
CPT/HCPCS: 36415; 80053; 81001; 85025; 99283

== ENCOUNTER 2020-06-05 17:17 | Emergency (ER) | payer MEDICARE, BC ==
[~2020-06-05] VITALS: Ht 160 cm; Wt 53.0 kg
[~2020-06-05 17:17] MED LIST changes: +ONDA4TAB6 PO
--- NOTE | 2020-06-05 17:56 | NUR ---
TO CT VIA [facility]
--- NOTE | 2020-06-05 18:40 | NUR ---
WALKED BY ROOM, PT TRYING TO GET OUT OF BED. SHE HAD BOTH HER LEGS THROUGH THE SIDERAIL. WAS ABLE TO GET HER TO LAY BACK DOWN AND I COVERED HER UP.
[2020-06-05 18:47] VITALS: BP 142/78
--- NOTE | 2020-06-05 19:03 | NUR ---
STEADY AMBULATION WITH WALKER FROM HOME
== END 2020-06-05 19:10 | disposition home or self-care (01) ==
LOC: ER 17:18
DX: F10.129 Alcohol abuse with intoxication, unspecified (principal); M81.0 Age-related osteoporosis without current pathological fracture; Z91.81 History of falling; I48.91 Unspecified atrial fibrillation; J32.9 Chronic sinusitis, unspecified; E78.00 Pure hypercholesterolemia, unspecified; I10 Essential (primary) hypertension; Z87.11 Personal history of peptic ulcer disease; Z87.440 Personal history of urinary (tract) infections; Z90.89 Acquired absence of other organs; Z90.710 Acquired absence of both cervix and uterus; Z98.890 Other specified postprocedural states; Z72.89 Other problems related to lifestyle; Z88.5 Allergy status to narcotic agent; Z79.899 Other long term (current) drug therapy; W18.30XA Fall on same level, unspecified, initial encounter; Y93.89 Activity, other specified; Y92.89 Other specified places as the place of occurrence of the external cause; Y99.8 Other external cause status
CPT/HCPCS: 70450; 72125; 99285

== ENCOUNTER 2021-05-24 15:14 | Emergency (ER) | payer MEDICARE, BC ==
[~2021-05-24] VITALS: Ht 157.5 cm; Wt 47.3 kg
[~2021-05-24 15:14] MED LIST changes: -LISI-600 PO; +LISI20TA28 PO; -OMEP40CA13 PO; +OMEP40CA21 PO; -POTA10TA36 PO; +POTA10TA37 PO; +lidocaine 1%/epinephrine 1:100,000 injection 50ml vial ONE
--- NOTE | 2021-05-24 15:49 | NUR ---
PT OFF UNIT TO CT AT THIS TIME.
--- NOTE | 2021-05-24 16:50 | NUR ---
DR. GILBERT AT BEDSIDE FOR RE-EVAL. INJECTED WOUND WITH LIDO/EPI TO FURTHER ASSESS WOUND BED. NO KEILY/GLUE/SUTURES NEEDED AT THIS TIME.
[2021-05-24 16:51] VITALS: BP 116/82
== END 2021-05-24 17:25 | disposition home or self-care (01) ==
LOC: ER 15:14
DX: S01.91XA Laceration without foreign body of unspecified part of head, initial encounter (principal); F10.129 Alcohol abuse with intoxication, unspecified; G62.9 Polyneuropathy, unspecified; I48.91 Unspecified atrial fibrillation; E78.00 Pure hypercholesterolemia, unspecified; I10 Essential (primary) hypertension; Z87.11 Personal history of peptic ulcer disease; Z87.440 Personal history of urinary (tract) infections; Z90.49 Acquired absence of other specified parts of digestive tract; Z90.710 Acquired absence of both cervix and uterus; Z72.89 Other problems related to lifestyle; Z88.8 Allergy status to other drugs, medicaments and biological substances; Z79.899 Other long term (current) drug therapy; W01.0XXA Fall on same level from slipping, tripping and stumbling without subsequent striking against object, initial encounter; Y93.89 Activity, other specified; Y92.89 Other specified places as the place of occurrence of the external cause; Y99.8 Other external cause status; Y90.9 Presence of alcohol in blood, level not specified
CPT/HCPCS: 70450; 72125; 99284; J3490

== ENCOUNTER 2022-03-11 13:49 | Emergency (ER) | payer MEDICARE, BC ==
[~2022-03-11] VITALS: Ht 157.5 cm; Wt 50.0 kg
[~2022-03-11 13:49] MED LIST changes: +POTA-206 PO; -POTA10TA37 PO; -lidocaine 1%/epinephrine 1:100,000 injection 50ml vial ONE
--- NOTE | 2022-03-11 14:43 | NUR ---
To CT via [facility]. Transported by [facility].
[2022-03-11] MEDS ORDERED: normal saline 1000ML IV soln IVB ONE (15:00)
[2022-03-11 15:04] LABS: BASOPHILS # (AUTO) 0.1 X10'3 (0-0.2); BASOPHILS % (AUTO) 0.4 % (0-1); EOSINOPHILS # (AUTO) 0.4 X10'3 (0-0.9); EOSINOPHILS % (AUTO) 2.9 % (0-6); HEMATOCRIT 33.4 % (35.0-45.0); LYMPHOCYTES # (AUTO) 1.6 X10'3 (1.1-4.8); LYMPHOCYTES % (AUTO) 11.5 % (21-51); MEAN CORPUSCULAR HEMOGLOBIN 34.8 PG (27.0-31.0); MEAN CORPUSCULAR HGB CONC 32.9 g/dL (33.0-36.5); MEAN CORPUSCULAR VOLUME 105.9 FL (78-98); MEAN PLATELET VOLUME 7.5 FL (7.4-10.4); MONOCYTES # (AUTO) 0.9 X10'3 (0-0.9); MONOCYTES % (AUTO) 6.7 % (2-12); NEUTROPHILS % (AUTO) 78.5 % (42-75); PLATELET COUNT 326 X10'3 (140-440); RED BLOOD COUNT 3.16 X10'6 (4.20-5.60); RED CELL DISTRIBUTION WIDTH 13.3 % (11.5-14.5)
[2022-03-11 15:08] LABS: ALANINE AMINOTRANSFERASE 19 U/L (12-78); ALBUMIN 3.3 G/DL (3.4-5.0); ALBUMIN/GLOBULIN RATIO 0.8 (1.1-1.5); ALKALINE PHOSPHATASE 72 IU/L (46-116); ANION GAP 11 (8-16); ASPARTATE AMINO TRANSFERASE 32 U/L (10-37); BILIRUBIN,TOTAL 0.2 MG/DL (0.1-1.0); BLOOD UREA NITROGEN 15 MG/DL (7-18); BUN/CREATININE RATIO 16.1 (6.6-38.0); CHLORIDE 95 MMOL/L (99-107); CREATININE 0.93 MG/DL (0.40-0.90); ETHANOL 0.216 GM/DL (0.0-0.010); GLUCOSE 87 MG/DL (70-104); POTASSIUM 3.9 MMOL/L (3.5-5.1); SODIUM 129 MMOL/L (135-145); TOTAL CARBON DIOXIDE 23.4 MMOL/L (24-32); TOTAL PROTEIN 7.2 G/DL (6.4-8.2); eGFR 58 ML/MIN
[2022-03-11 15:37] LABS: CLARITY,URINE CLEAR (Clear); COLOR,URINE YELLOW (Yellow); GLUCOSE, URINE NEGATIVE (Neg); KETONES,URINE NEGATIVE (Neg); LEUKOCYTE ESTERASE ,URINE TRACE (Neg); NITRITES, URINE NEGATIVE (Neg); OCCULT BLOOD,URINE TRACE-INTACT (Neg); PROTEIN,URINE NEGATIVE (Neg); UROBILINOGEN,URINE 0.2 E.U/dL (0.2-1.0)
[2022-03-11 15:39] LABS: UA COLLECTION TYPE STRAIGHT CATH
[2022-03-11 15:53] LABS: BACTERIA,URINE 1+ /HPF (Neg); RBC,URINE 0-2 /HPF (0-2)
[2022-03-11 15:54] LABS: SQUAMOUS EPITHELIAL CELL,UR FEW /LPF (FEW); TRANSITIONAL EPI CELLS,URINE FEW /HPF
[2022-03-11 15:56] VITALS: BP 154/88
[2022-03-11 15:58] LABS: WBC CLUMPS,URINE FEW /HPF (NEGATIVE)
[2022-03-11] MEDS ORDERED: CEPH-585 PO (17:30)
--- NOTE | 2022-03-11 17:40 | NUR ---
Notified Pt's SO, Damián, that she is ready to go home. He is unable to drive to pick her up and requested that we send her home in via taxi.
--- NOTE | 2022-03-11 17:45 | NUR ---
Pt given and understands d/c instructions. IV d/c'd, catheter was intact. Ambulatory with a slow unsteady gait. Escorted outside to taxi.
== END 2022-03-11 17:45 | disposition home or self-care (01) ==
LOC: ER 13:49
DX: S09.90XA Unspecified injury of head, initial encounter (principal); S00.93XA Contusion of unspecified part of head, initial encounter; N39.0 Urinary tract infection, site not specified; F10.129 Alcohol abuse with intoxication, unspecified; I48.91 Unspecified atrial fibrillation; E78.00 Pure hypercholesterolemia, unspecified; I10 Essential (primary) hypertension; Z87.440 Personal history of urinary (tract) infections; Z87.11 Personal history of peptic ulcer disease; Z90.89 Acquired absence of other organs; Z90.710 Acquired absence of both cervix and uterus; Z98.890 Other specified postprocedural states; Z72.89 Other problems related to lifestyle; Z88.5 Allergy status to narcotic agent; Z79.2 Long term (current) use of antibiotics; Z79.899 Other long term (current) drug therapy; W19.XXXA Unspecified fall, initial encounter; Y93.89 Activity, other specified; Y92.89 Other specified places as the place of occurrence of the external cause; Y99.8 Other external cause status
CPT/HCPCS: 36415; 70450; 72125; 80053; 80320; 81001; 85025; 87077; 87088; 87186; 96360; 96361; 99284; J7030

== ENCOUNTER 2024-05-26 19:23 | Inpatient (IN) | payer MEDICARE, BC ==
[~2024-05-26] VITALS: Ht 157.5 cm; Wt 48.4 kg
[2024-05-26] MEDS ORDERED: iohexol 350MG/ML 100ml bottle IV ONE ×2 (19:45→20:24)
[2024-05-26 20:30] LABS: BASOPHILS % (AUTO) 0.3 % (0-1); EOSINOPHILS # (AUTO) 0.1 X10'3 (0-0.9); HEMATOCRIT 37.7 % (35.0-45.0); HEMOGLOBIN 12.4 g/dl (12.0-16.0); LYMPHOCYTES # (AUTO) 0.8 X10'3 (1.1-4.8); LYMPHOCYTES % (AUTO) 6.8 % (21-51); MEAN CORPUSCULAR HEMOGLOBIN 32.9 PG (27.0-31.0); MEAN CORPUSCULAR VOLUME 99.7 FL (78-98); MEAN PLATELET VOLUME 7.7 FL (7.4-10.4); MONOCYTES # (AUTO) 0.9 X10'3 (0-0.9); NEUTROPHILS # (AUTO) 9.8 X10'3 (1.8-7.7); NEUTROPHILS % (AUTO) 83.9 % (42-75); PLATELET COUNT 500 X10'3 (140-440); RED BLOOD COUNT 3.79 X10'6 (4.20-5.60); RED CELL DISTRIBUTION WIDTH 14.1 % (11.5-14.5); WHITE BLOOD COUNT 11.6 X10'3 (4.5-11.0)
[2024-05-26 20:50] LABS: PROTHROMBIN TIME 10.3 SECONDS (9.0-12.0)
[2024-05-26 20:56] LABS: APTT 20 SECONDS (22-32)
[2024-05-26 21:16] LABS: ALBUMIN 4.1 G/DL (3.4-5.0); ANION GAP 10 (8-16); BLOOD UREA NITROGEN 19 MG/DL (7-18); CALCIUM 10.5 MG/DL (8.5-10.1); CHLORIDE 94 MMOL/L (99-107); CREATININE 1.19 MG/DL (0.40-0.90); GLUCOSE 150 MG/DL (70-104); POTASSIUM 4.6 MMOL/L (3.5-5.1); SODIUM 131 MMOL/L (135-145); TOTAL CARBON DIOXIDE 27.1 MMOL/L (24-32); eCRCL 27 ML/MIN; eGFR 43 ML/MIN
[2024-05-26] MEDS: aspirin 81mg, enteric-coated 1 TAB TABLET.DR PO ONE (22:39)
[2024-05-26] MEDS: normal saline 1000ml 1,000 ML IV ONE (22:42)
[2024-05-26] MEDS: clopidogrel 300mg tablet PO ONE (22:44)
[2024-05-26] MEDS: ondansetron/PF 4mg/2ml inj IV ONE (23:07)
[2024-05-27] VITALS (11 sets, daily range): BP systolic 141–232; BP diastolic 69–103; PULSE 103–116; RESP 14–18; TEMP 97.6–98.6; O2SAT 95–99
[2024-05-27] MEDS: PERFLUTREN PROTEIN-A MICROSPHR (Optison) 0.22 MG/ML 3ML VIAL IV ONE (00:25)
[2024-05-27] MEDS: normal saline 1000ml 1,000 ML IV SCH ×2 (01:40→02:26)
[2024-05-27 01:44] LABS: HEMOGLOBIN A1C 5.3 % (4.5-6.2)
[2024-05-27 01:46] LABS: PRO BRAIN NATRIURETIC PEPTIDE 1003 PG/ML (0-450)
[2024-05-27 03:38] LABS: BILIRUBIN,URINE NEGATIVE (Neg); CLARITY,URINE CLEAR (Clear); COLOR,URINE YELLOW (Yellow); GLUCOSE, URINE NEGATIVE (Neg); KETONES,URINE NEGATIVE (Neg); LEUKOCYTE ESTERASE ,URINE TRACE (Neg); NITRITES, URINE POSITIVE (Neg); OCCULT BLOOD,URINE SMALL (Neg); PH,URINE 5.5 (4.8-8.0); PROTEIN,URINE 100 mg/dl (Neg)
[2024-05-27 03:45] LABS: UA COLLECTION TYPE STRAIGHT CATH; URINE AMPHETAMINE SCREEN NEGATIVE (Neg); URINE BARBITUATE SCREEN NEGATIVE (Neg); URINE BENZODIAZEPINES SCREEN NEGATIVE (Neg); URINE CANNABINOID SCREEN NEGATIVE (Neg); URINE COCAINE SCREEN NEGATIVE (Neg); URINE METHADONE SCREEN NEGATIVE (Neg); URINE OPIATE SCREEN NEGATIVE (Neg); URINE PHENCYCLIDINE SCREEN NEGATIVE (Neg)
[2024-05-27 03:47] LABS: BACTERIA,URINE 4+ /HPF (Neg); SQUAMOUS EPITHELIAL CELL,UR NONE SEEN /LPF (FEW); WBC CLUMPS,URINE FEW /HPF (NEGATIVE); WBC,URINE 50-100 /HPF (0-4)
[2024-05-27] MEDS: CefTRIAXone/D5W-Rocephin 1gm 50 ML IV SCH (05:07)
[2024-05-27 06:26] LABS: BASOPHILS % (AUTO) 0.5 % (0-1); EOSINOPHILS % (AUTO) 0.2 % (0-6); HEMATOCRIT 34.7 % (35.0-45.0); HEMOGLOBIN 11.8 g/dl (12.0-16.0); LYMPHOCYTES # (AUTO) 0.7 X10'3 (1.1-4.8); LYMPHOCYTES % (AUTO) 6.9 % (21-51); MEAN CORPUSCULAR HEMOGLOBIN 33.6 PG (27.0-31.0); MEAN CORPUSCULAR HGB CONC 34.1 g/dL (33.0-36.5); MEAN CORPUSCULAR VOLUME 98.7 FL (78-98); MEAN PLATELET VOLUME 8.1 FL (7.4-10.4); MONOCYTES # (AUTO) 0.8 X10'3 (0-0.9); NEUTROPHILS # (AUTO) 8.4 X10'3 (1.8-7.7); NEUTROPHILS % (AUTO) 84.4 % (42-75); PLATELET COUNT 451 X10'3 (140-440); RED BLOOD COUNT 3.52 X10'6 (4.20-5.60); RED CELL DISTRIBUTION WIDTH 13.8 % (11.5-14.5)
[2024-05-27 07:11] LABS: ALANINE AMINOTRANSFERASE 18 U/L (12-78); ALBUMIN 3.7 G/DL (3.4-5.0); ALKALINE PHOSPHATASE 66 IU/L (46-116); ANION GAP 10 (8-16); ASPARTATE AMINO TRANSFERASE 20 U/L (10-37); BILIRUBIN,TOTAL 0.6 MG/DL (0.1-1.0); BLOOD UREA NITROGEN 19 MG/DL (7-18); BUN/CREATININE RATIO 20.2 (10.0-20.0); CALCIUM 9.9 MG/DL (8.5-10.1); CHLORIDE 98 MMOL/L (99-107); CREATININE 0.94 MG/DL (0.40-0.90); GLUCOSE 119 MG/DL (70-104); POTASSIUM 4.6 MMOL/L (3.5-5.1); SODIUM 134 MMOL/L (135-145); TOTAL CARBON DIOXIDE 26.5 MMOL/L (24-32); TOTAL PROTEIN 7.4 G/DL (6.4-8.2); eCRCL 34 ML/MIN; eGFR 57 ML/MIN
[2024-05-27] MEDS: hydrALAZINE 20mg/ml inj. IV PRN (07:50)
[2024-05-27] MEDS: clopidogrel 75mg tablet PO SCH (07:51)
[2024-05-27] MEDS: aspirin 81mg, enteric-coated 1 TAB TABLET.DR PO SCH (07:52)
[2024-05-27] MEDS: heparin, porcine 5000 units/ml vial SQ SCH (07:53)
[2024-05-27] MEDS: acetaminophen 325mg tablet PO PRN (10:39)
[2024-05-27] MEDS: lactose-reduced food (Ensure Enlive) - 237ml bottle PO SCH (18:37)
[2024-05-28] VITALS (7 sets, daily range): BP systolic 143–169; BP diastolic 58–88; PULSE 86–118; RESP 15–16; TEMP 97.2–98.8; O2SAT 96–100
[2024-05-28 06:20] LABS: BASOPHILS # (AUTO) 0.1 X10'3 (0-0.2); BASOPHILS % (AUTO) 1.9 % (0-1); EOSINOPHILS # (AUTO) 0.4 X10'3 (0-0.9); EOSINOPHILS % (AUTO) 6.3 % (0-6); HEMATOCRIT 31.5 % (35.0-45.0); HEMOGLOBIN 10.7 g/dl (12.0-16.0); LYMPHOCYTES # (AUTO) 1.2 X10'3 (1.1-4.8); MEAN CORPUSCULAR HEMOGLOBIN 33.5 PG (27.0-31.0); MEAN CORPUSCULAR HGB CONC 33.9 g/dL (33.0-36.5); MEAN CORPUSCULAR VOLUME 98.6 FL (78-98); MEAN PLATELET VOLUME 7.8 FL (7.4-10.4); MONOCYTES # (AUTO) 0.7 X10'3 (0-0.9); MONOCYTES % (AUTO) 12.6 % (2-12); NEUTROPHILS # (AUTO) 3.4 X10'3 (1.8-7.7); NEUTROPHILS % (AUTO) 58.2 % (42-75); PLATELET COUNT 393 X10'3 (140-440); RED CELL DISTRIBUTION WIDTH 14.2 % (11.5-14.5); WHITE BLOOD COUNT 5.9 X10'3 (4.5-11.0)
[2024-05-28 06:36] LABS: ALANINE AMINOTRANSFERASE 16 U/L (12-78); ALBUMIN 3.4 G/DL (3.4-5.0); ALKALINE PHOSPHATASE 56 IU/L (46-116); ANION GAP 10 (8-16); ASPARTATE AMINO TRANSFERASE 21 U/L (10-37); BILIRUBIN,TOTAL 0.6 MG/DL (0.1-1.0); BLOOD UREA NITROGEN 18 MG/DL (7-18); BUN/CREATININE RATIO 18.6 (10.0-20.0); CALCIUM 9.5 MG/DL (8.5-10.1); CHLORIDE 101 MMOL/L (99-107); CHOL/HDL RATIO 2.4 (0.00-4.99); CHOLESTEROL 207 MG/DL (0-200); CREATININE 0.97 MG/DL (0.40-0.90); GLUCOSE 100 MG/DL (70-104); HDL CHOLESTEROL 87 MG/DL (35-60); LDL CHOLESTEROL 103 MG/DL (50-100); POTASSIUM 3.5 MMOL/L (3.5-5.1); SODIUM 135 MMOL/L (135-145); THYROID STIMULATING HORMONE 2.16 ulU/ml (0.34-4.50); TOTAL CARBON DIOXIDE 23.6 MMOL/L (24-32); TOTAL PROTEIN 6.8 G/DL (6.4-8.2); TRIGLYCERIDES 63 MG/DL (20-135); eCRCL 33 ML/MIN; eGFR 55 ML/MIN
[2024-05-28] MEDS: atorvastatin 20mg tablet PO SCH (09:00)
[2024-05-28] MEDS: CefTRIAXone 2gm/D5W 50ml BAG 50 ML IV SCH (10:31)
[2024-05-28] MEDS ORDERED: LORazepam 2 mg/ml vial IV PRN (15:40)
[2024-05-28] MEDS: LORazepam 1 MG tablet PO PRN (16:15)
[2024-05-28] MEDS: lactobacillus rhamnosus 10,000 MMU CELLS/CAPSULE PO SCH (20:50)
[2024-05-28] MEDS: gabapentin 100mg capsule PO SCH (20:50)
[2024-05-29] MEDS: lisinopril 20mg tablet PO SCH (05:22)
[2024-05-29] MEDS: lisinopril 20mg tablet PO ONE (05:33)
[2024-05-29 06:00] VITALS: BP 172/78; PULSE 89; RESP 16; TEMP 98.3; O2SAT 97
[2024-05-29 06:20] LABS: BASOPHILS # (AUTO) 0.1 X10'3 (0-0.2); BASOPHILS % (AUTO) 1.8 % (0-1); EOSINOPHILS # (AUTO) 0.7 X10'3 (0-0.9); EOSINOPHILS % (AUTO) 9.7 % (0-6); LYMPHOCYTES # (AUTO) 1.6 X10'3 (1.1-4.8); LYMPHOCYTES % (AUTO) 22.9 % (21-51); MEAN CORPUSCULAR HEMOGLOBIN 33.1 PG (27.0-31.0); MEAN CORPUSCULAR HGB CONC 33.4 g/dL (33.0-36.5); MEAN CORPUSCULAR VOLUME 99.3 FL (78-98); MEAN PLATELET VOLUME 7.9 FL (7.4-10.4); MONOCYTES # (AUTO) 0.8 X10'3 (0-0.9); MONOCYTES % (AUTO) 11.6 % (2-12); NEUTROPHILS # (AUTO) 3.7 X10'3 (1.8-7.7); PLATELET COUNT 408 X10'3 (140-440); RED BLOOD COUNT 3.33 X10'6 (4.20-5.60); RED CELL DISTRIBUTION WIDTH 14.1 % (11.5-14.5); WHITE BLOOD COUNT 6.8 X10'3 (4.5-11.0)
[2024-05-29 06:31] LABS: ALANINE AMINOTRANSFERASE 17 U/L (12-78); ALBUMIN 3.2 G/DL (3.4-5.0); ALBUMIN/GLOBULIN RATIO 0.9 (1.1-1.5); ALKALINE PHOSPHATASE 56 IU/L (46-116); ANION GAP 11 (8-16); ASPARTATE AMINO TRANSFERASE 23 U/L (10-37); BILIRUBIN,TOTAL 0.4 MG/DL (0.1-1.0); BLOOD UREA NITROGEN 19 MG/DL (7-18); BUN/CREATININE RATIO 20.7 (10.0-20.0); CALCIUM 9.2 MG/DL (8.5-10.1); CHLORIDE 103 MMOL/L (99-107); CREATININE 0.92 MG/DL (0.40-0.90); GLUCOSE 92 MG/DL (70-104); MAGNESIUM 1.4 MG/DL (1.5-2.4); POTASSIUM 3.5 MMOL/L (3.5-5.1); SODIUM 138 MMOL/L (135-145); TOTAL CARBON DIOXIDE 24.5 MMOL/L (24-32); TOTAL PROTEIN 6.6 G/DL (6.4-8.2); eCRCL 35 ML/MIN; eGFR 58 ML/MIN
[2024-05-29 06:32] LABS: PHOSPHORUS 3.4 MG/DL (2.3-4.5)
[2024-05-29 08:00] VITALS: RESP 16; O2SAT 97
[2024-05-29] MEDS: amLODIPine 5mg tablet PO SCH (09:12)
[2024-05-29] MEDS: venlafaxine XR 75mg capsule (Q24H) PO SCH (09:13)
[2024-05-29] MEDS: atorvastatin 20mg tablet PO SCH (09:14)
[2024-05-29 10:00] VITALS: BP 149/75; PULSE 90; RESP 16; TEMP 97.9; O2SAT 99
== END 2024-05-29 16:35 | DRG 690 ==
LOC: ER 19:24 → ED HOLD 23:42 → EDBEDREQ 05-27 01:43 → ORTHO 4S 05-27 02:50
PROVIDERS: ADMIT Surgery Surgical Critical Care; ATTEND Internal Medicine
PROC: B3251ZZ Computerized Tomography (CT Scan) of Bilateral Common Carotid Arteries using Low Osmolar Contrast (ICD-10-PCS; principal; 2024-05-26)
PROC: B32G1ZZ Computerized Tomography (CT Scan) of Bilateral Vertebral Arteries using Low Osmolar Contrast (ICD-10-PCS; 2024-05-26)
PROC: B32R1ZZ Computerized Tomography (CT Scan) of Intracranial Arteries using Low Osmolar Contrast (ICD-10-PCS; 2024-05-26)
PROC: B3281ZZ Computerized Tomography (CT Scan) of Bilateral Internal Carotid Arteries using Low Osmolar Contrast (ICD-10-PCS; 2024-05-26)
DX: N39.0 Urinary tract infection, site not specified (principal); E46 Unspecified protein-calorie malnutrition; Z68.1 Body mass index [BMI] 19.9 or less, adult; E78.00 Pure hypercholesterolemia, unspecified; I48.91 Unspecified atrial fibrillation; I10 Essential (primary) hypertension; G62.9 Polyneuropathy, unspecified; F10.129 Alcohol abuse with intoxication, unspecified; R73.9 Hyperglycemia, unspecified; J32.0 Chronic maxillary sinusitis; Z88.5 Allergy status to narcotic agent; Z79.899 Other long term (current) drug therapy; Z90.49 Acquired absence of other specified parts of digestive tract; Z90.710 Acquired absence of both cervix and uterus; Z87.11 Personal history of peptic ulcer disease
CPT/HCPCS: 36415; 70450; 70496; 70498; 70551; 71045; 80048; 80053; 80061; 80305; 81001; 82948; 83036; 83735; 83880; 84100; 84443; 84484; 85025; 85610; 85730; 86885; 86900; 86901; 87077; 87081; 87088; 87186; 92508; 92616; 93005; 93306; 96374; 97161; 97530; 97535; 99285; A6213; A6250; A6258; A6449; C1758; G0378; J0360; J0696; J1644; J2405; J7030; Q9967